=== PATIENT | female | born 1990 | race Asian ===

== ENCOUNTER → 2017-08-20 | Outpatient (CLI) | payer OTHER | LOC: COL.RAD 12:38 | DX: R22.1 Localized swelling, mass and lump, neck (principal) ==

== ENCOUNTER → 2018-09-09 | Outpatient (CLI) | payer OTHER | LOC: COL.RAD 09:45 | DX: E04.1 Nontoxic single thyroid nodule (principal) ==

== ENCOUNTER → 2019-12-04 | Outpatient (CLI) | payer OTHER | LOC: COL.RAD 12:20 | DX: E04.1 Nontoxic single thyroid nodule (principal) ==